=== PATIENT | female | born 1965 | race Caucasian/White ===

== ENCOUNTER 2021-04-22 06:49 | Day surgery (SDC) | payer OTHER ==
[~2021-04-22 06:49] MED LIST: Lactated Ringers 1,000 ML IV SCH
[2021-04-22] MEDS: Lactated Ringers 1,000 ML IV SCH (07:48)
[2021-04-22] MEDS ORDERED: fentaNYL 100 MCG/2 ML SDV ONE (07:50)
[2021-04-22] MEDS ORDERED: Propofol 200 MG/20 ML SDV ONE (07:50)
--- NOTE | 2021-04-22 12:49 | OR ---
PREOPERATIVE DIAGNOSIS: Screening colonoscopy. POSTOPERATIVE DIAGNOSIS: Normal total flexible colonoscopy. PROCEDURE PERFORMED: Total flexible colonoscopy. ANESTHESIA: MAC anesthesia. COMPLICATIONS: None. BLOOD LOSS: Minimal. FINDINGS: Normal exam. START TIME: 907. CECUM TIME: 913. STOP TIME: 925. BOWEL PREP: [place] class 2. INDICATION FOR PROCEDURE: Shavon Alicea is a 55-year-old female who is here for her first screening colonoscopy. She has no family history of colon cancer. DETAILS OF PROCEDURE: Informed consent was obtained. The patient was brought to the procedure room and placed in left lateral decubitus position. MAC anesthesia was induced by Anesthesia colleagues. The colonoscope was introduced into the rectum and advanced all the way to the cecum. The appendiceal orifice and ileocecal valve were photographed. The colonoscope was then slowly withdrawn. No pathology was identified. A retroflexed view was obtained. The colonoscope was removed. The patient was awoken from MAC anesthesia by Anesthesia colleagues without incident. RKM: 04/22/2021 09:30:21 MODL: 04/22/2021 11:49:38 /[id number]
== END 2021-04-22 10:45 | disposition home or self-care (01) ==
LOC: VM.SDS 06:49
PROVIDERS: ATTEND Student in an Organized Health Care Education/Training Program
DX: Z12.11 Encounter for screening for malignant neoplasm of colon (principal); C50.212 Malignant neoplasm of upper-inner quadrant of left female breast; I48.0 Paroxysmal atrial fibrillation; E78.00 Pure hypercholesterolemia, unspecified; I45.19 Other right bundle-branch block; Z79.899 Other long term (current) drug therapy; Z88.6 Allergy status to analgesic agent; Z88.8 Allergy status to other drugs, medicaments and biological substances; Z17.0 Estrogen receptor positive status [ER+]
CPT/HCPCS: 00812; J2704; J3010; J7120